=== PATIENT | female | born 1990 | race Caucasian/White ===

== ENCOUNTER 2018-12-20 21:12 | Emergency (ER) | payer BC, MEDICAID ==
[~2018-12-20] VITALS: Ht 170.2 cm; Wt 54.5 kg
[2018-12-20 21:23] VITALS: BP 111/77
[2018-12-20] MEDS ORDERED: LIDOcaine 1% w/epiNEPHrine 1:200,000 30ml vial IM ONE (23:15)
[2018-12-20] MEDS ORDERED: CLIN-96 PO (23:57)
[2018-12-21] MEDS ORDERED: clindamycin 150mg capsule PO ONE
== END 2018-12-21 00:15 | disposition home or self-care (01) ==
LOC: ER 21:12
DX: L02.413 Cutaneous abscess of right upper limb (principal); F19.10 Other psychoactive substance abuse, uncomplicated; F17.200 Nicotine dependence, unspecified, uncomplicated; F15.90 Other stimulant use, unspecified, uncomplicated; F11.90 Opioid use, unspecified, uncomplicated; Z86.14 Personal history of Methicillin resistant Staphylococcus aureus infection; Z88.1 Allergy status to other antibiotic agents; Z91.013 Allergy to seafood
CPT/HCPCS: 10060; 99283; J3490

== ENCOUNTER 2025-04-05 12:17 | Emergency (ER) | payer MEDICAID ==
[~2025-04-05] VITALS: Ht 170.2 cm; Wt 79.5 kg
[~2025-04-05 12:17] MED LIST: CLIN-97 PO
[2025-04-05 12:34] VITALS: BP 120/63; PULSE 84; RESP 15; TEMP 98.6; O2SAT 99
--- NOTE | 2025-04-05 13:57 | Physician Documentation ---
History of Present Illness ~ Chief Complaint: Bite-insect Stated Complaint: "BUMP IN MY ARMPIT TURNED INTO AN ABCESS" Time Seen by MD: 13:04 OK to notify your PCP?: Yes Primary Medical Doctor: NO PMD Source: patient Mode of Arrival: POV Exam Limitations: no limitations HPI 35-year-old female with chief complaint painful bump in her right axilla for which she noticed a few days ago. States the bump has gotten progressively more swollen over the past 24 hours. She has never had anything like this before in her axilla. States "I did get a spider bite last month in my groin." No hidradenitis history. No fever, chills, nausea, chest pain, sob. Tetanus within 5 years?: No (2016) Medication Reconciliation Allergies: Coded Allergies: vancomycin (Verified Allergy, Intermediate, SYSTEMIC RASH, 04/05/25) Shellfish (Verified Allergy, Unknown, 04/05/25) Uncoded Allergies: SHRIMP (Allergy, Unknown, 12/20/18) Scheduled Clindamycin HCL* (Clindamycin HCL*), 1 CAP PO Q6H Sulfamethoxazole/Trimethoprim (Bactrim Ds Tablet), 1 TAB PO Q12H Past Medical History Past Medical History: MRSA Abscess Past Surgical History: no surgical history Alcohol Use: None Drug Use: methamphetamine, heroin Lives with: Mother Lives In: Home Review of Systems All Other Systems at this time: Reviewed and Negative Physical Exam Vital Signs: Temperature: 98.6, Source: Oral, Heart Rate: 84, Respiratory Rate: 15, BP: 120/63, Pulse Oximetry: 99, Weight: 79.550 Physical Exam General Appearance: Alert, WD/WN. NAD. HEENT: NCAT, PERRL, EOMI. Neck: Supple, trachea midline. Cardiovascular: RRR. No m/r/g. Lungs: CTAB. Breathing unlabored Extremities: Normal inspection. No edema. Skin: Warm/dry, normal color. RIGHT AXILLA THERE ARE SEVERAL ERYTHEMATOUS FLUCTUANT MASSES, THE LARGEST MEASURES ABOUT 3CM IN LENGTH X 1CM IN WDITH, AREA IS INDURATED AND FLUCTUANT. NO SCARRING. Neurological: Alert and oriented x4, normal gait. Psychiatric: Affect congruent with mood. Procedures I & D Procedure : Site: N Anesthesia: Lidocaine w/ Epi Blade Size: 11 Prep/Supplies: betadine prep Incision: pus drained, blood drained Tolerated Procedure Well?: yes, no complications Progress Results/Orders Results/Orders Orders - SCOTT HAZEL Cult (Aer) Routine C&S+Gram St (04/05/25 13:44) Laceration/I&D Tray Set Up (04/05/25 13:44) Completed Orders - SCOTT HAZEL Lidocaine 1% W/Epi 1:100,000 (Xylocaine (04/05/25 13:50) Lidocaine 1% W/Epi 1:100,000 (Xylocaine (04/05/25 13:45) Vital Signs 04/05/25 12:34 Temp 98.6 Pulse 84 Resp 15 B/P (MAP) 120/63 Pulse Ox 99 Medical Decision Making Differential Dx:Considerations: Include: Abrasion, Allergic reaction, Anaphylaxis, Cellulitis, Contusion, Fracture, Hematoma, Insect envenomation, Laceration, Neurovascular injury, Punture wound, Retained foreign body, Urticaria, Other Departure Time of Disposition: 13:56 Disposition: 01 HOME / SELF CARE / HOMELESS Impression: Primary Impression: Abscess of axilla, right Condition: Stable Discharge Instructions: Abscess, Care After Additional Instructions: ANTIBIOTIC SENT TO PHARMACY Referrals: NO PRIMARY CARE PROVIDER (PCP) Prescriptions Sulfamethoxazole/Trimethoprim (Bactrim Ds Tablet) 800 Mg-160 Mg Tablet 1 TAB PO Q12H for 10 Days, #20 TAB Prov: SCOTT HAZEL 04/05/25 Education Educated: Patient Educated regarding: diagnosis, treatment, need for follow up Signature Scribe Signature: X Attestation: SCOTT MESSINA Apr 05, 2025 13:57
[2025-04-05] MEDS ORDERED: SULF1TAB49 PO (13:59)
[2025-04-05] MEDS: LIDOcaine 1% W/epiNEPHrine 1:100,000 20ml vial SQ ONE (14:05)
[2025-04-05] MEDS: LIDOcaine 1% W/epiNEPHrine 1:100,000 20ml vial IJ ONE (14:05)
== END 2025-04-05 15:03 | disposition home or self-care (01) ==
LOC: ER 12:18
DX: L02.411 Cutaneous abscess of right axilla (principal); F15.90 Other stimulant use, unspecified, uncomplicated; F11.90 Opioid use, unspecified, uncomplicated; Z88.1 Allergy status to other antibiotic agents; Z79.899 Other long term (current) drug therapy
CPT/HCPCS: 10060; 87070; 87077; 87186; 99283; A6258; A6449

== ENCOUNTER 2025-09-23 21:29 | Emergency (ER) | payer MEDICAID ==
[~2025-09-23] VITALS: Ht 172.7 cm; Wt 75.0 kg
[~2025-09-23 21:29] MED LIST changes: +CLIN-224 PO; -CLIN-97 PO; +SULF1TAB49 PO
[2025-09-23 21:46] VITALS: BP 101/65; PULSE 119; RESP 15; TEMP 97.2; O2SAT 100
[2025-09-23 22:12] LABS: INFLUENZA TYPE A ANTIGEN RAPID NEGATIVE (Negative); INFLUENZA TYPE B ANTIGEN RAPID NEGATIVE (Negative)
--- NOTE | 2025-09-23 22:23 | RADIOLOGY REPORT ---
CLINICAL HISTORY: Rule out pneumonia TECHNIQUE: Single view of the chest was obtained. COMPARISON: None FINDINGS: The heart size and pulmonary vasculature are normal. There is a right lower lung consolidation. IMPRESSION: Right lower lung pneumonia.
[2025-09-23] MEDS: CefTRIAXone 1000mg IM Kit (w/lidocaine diluent) IM ONE (22:26)
[2025-09-23] MEDS ORDERED: ALBU8HFA INH (22:32)
[2025-09-23] MEDS ORDERED: HYDR473S79 PO (22:32)
[2025-09-23] MEDS ORDERED: AZIT250T83 PO (22:32)
--- NOTE | 2025-09-23 22:33 | Physician Documentation ---
History of Present Illness ~ Chief Complaint: Cold, cough & congestion Stated Complaint: SICK Time Seen by MD: 21:52 OK to notify your PCP?: Yes Primary Medical Doctor: NO PMD Source: patient Mode of Arrival: POV Exam Limitations: no limitations HPI This is a 35-year-old female who comes in complaining of cold and flu symptoms for the past three days. Patient complains of generalized body aches, subjective fever, chills and cough. She states the cough is causing chest pain and headache. She said she had short of breath with the exertion. She does smoke cigarettes but has not no history of asthma or COPD. Medication Reconciliation Allergies: Coded Allergies: vancomycin (Verified Allergy, Intermediate, SYSTEMIC RASH, 09/23/25) Shellfish (Verified Allergy, Unknown, 09/23/25) Scheduled Clindamycin HCL* (Clindamycin HCL*), 1 CAP PO Q6H Sulfamethoxazole/Trimethoprim (Bactrim Ds Tablet), 1 TAB PO Q12H Past Medical History Past Medical History: MRSA Abscess Past Surgical History: no surgical history Alcohol Use: None Drug Use: methamphetamine, heroin Lives with: Mother Lives In: Home Physical Exam Vital Signs: Temperature: 97.2, Source: Temporal, Heart Rate: 119, Respiratory Rate: 15, BP: 101/65, Pulse Oximetry: 100, Weight: 75.000 Pulse Oximetry Reflects: adequate oxygenation General Appearance: alert, WD/WN, no apparent distress Respiratory Point it is clear to auscultation all river. No crackles, rales or wheezes. No accessory muscle use or retractions. Skin Cool and clammy. Progress Results/Orders Results/Orders Orders - DEDE GUILLAUME Chest,Single View (09/23/25 22:12) Completed Orders - DEDE GUILLAUME Chest,Single View (09/23/25 22:12) Influenza Type A&B Rapid Test (09/23/25 21:49) Ceftriaxone Im Kit W/Lidocaine (Rocephin (09/23/25 22:20) Medications Received in ER Medications (Trade) Dose Ordered Sig/Joaquín Route PRN Reason Start Time Stop Time Status Last Admin Dose Admin (Rocephin 1GM IM kit (w/lidocaine diluent)) 1,000 mg ONCE ONCE IM 09/23/25 22:20 09/23/25 22:21 DC 09/23/25 22:26 1,000 MG Vital Signs 09/23/25 21:46 Temp 97.2 Pulse 119 Resp 15 B/P (MAP) 101/65 Pulse Ox 100 Laboratory Tests Test 09/23/25 21:53 Influenza Type A Antigen Negative Influenza Type B Antigen Negative Medical Decision Making Additional information obtaine: N/A Findings The patient's influenza swab was negative however the chest x-ray did show a right lower lobe pneumonia. I gave the patient Rocephin 1 g IM here and we will discharge the patient home with a prescription for an albuterol inhaler, Z-Christopher and Hycodan cough medicine. I told her to take ibuprofen or Tylenol for body aches or fever. Drink lots of water and get plenty of rest. Follow up with the primary care physician for recheck in the next one or two days and return to the ER for any worsening or concerning symptoms Differential Dx:Considerations: Include: Influenza, Pneumonia, URI Differential Diagnosis Upper respiratory tract infection. Pneumonia. COVID. Influenza. Departure Disposition: 01 HOME / SELF CARE / HOMELESS Impression: Primary Impression: Pneumonia Condition: Stable Discharge Instructions: Community-Acquired Pneumonia, Adult Additional Instructions: Take all medications as prescribed. I strongly suggest you stopped smoking. Follow up with the your primary care physician for recheck in the next one or two days and return to the ER for any worsening or concerning symptoms. Referrals: NO PRIMARY CARE PROVIDER (PCP) Prescriptions albuterol inhaler (Pro-Air Inhaler) 8.5 Gm Inhaler 2 PUFFS INH Q4HPRN PRN for wheezing for 30 Days, #18 GM Prov: DEDE GUILLAUME 09/23/25 Hydrocodone Bit/Homatrop Me-Br (Hycodan 5 mg-1.5 mg/5 ml Soln) 5 Mg-1.5 Mg/5 Ml Syrup 5 ML PO Q6H for cough, #120 ML Prov: DEDE GUILLAUME 09/23/25 Azithromycin (Azithromycin) 250 Mg Tablet 1 TAB PO UD for 5 Days, #6 TAB 2 the first day followed by 1 for days 2-5 Prov: DEDE GUILLAUME 09/23/25 Signature Scribe Signature: No scribe Attestation: The note accurately reflects work and decisions made by me.Dede TRINIDAD 09/23/25 22:33 DEDE GUILLAUME Sep 23, 2025 22:33
== END 2025-09-23 22:37 | disposition home or self-care (01) ==
LOC: ER 21:30
DX: J18.9 Pneumonia, unspecified organism (principal); F17.210 Nicotine dependence, cigarettes, uncomplicated; F15.90 Other stimulant use, unspecified, uncomplicated; F11.90 Opioid use, unspecified, uncomplicated; Z86.14 Personal history of Methicillin resistant Staphylococcus aureus infection; Z88.1 Allergy status to other antibiotic agents; Z91.013 Allergy to seafood; Z79.899 Other long term (current) drug therapy
CPT/HCPCS: 71045; 87804; 96372; 99284; J0696